=== PATIENT | female | born 1975 | race Caucasian/White ===

== ENCOUNTER 2018-07-18 14:29 | Emergency (ER) | payer SELFPAY ==
[~2018-07-18] VITALS: Ht 170.2 cm; Wt 113.4 kg
[2018-07-18 14:39] VITALS: BP 144/78
--- NOTE | 2018-07-18 14:51 | NUR ---
SEEN AND EXAMINED BY DR. HURTADO.
--- NOTE | 2018-07-18 15:00 | NUR ---
Patient discharged to home in stable condition. Written and verbal after care instructions given. Patient verbalizes understanding of instruction.
== END 2018-07-18 15:02 | disposition home or self-care (01) ==
LOC: ER 14:29
DX: H11.31 Conjunctival hemorrhage, right eye (principal); F32.9 Major depressive disorder, single episode, unspecified